=== PATIENT | female | born 1965 | race Caucasian/White ===

== ENCOUNTER 2016-10-25 17:44 | Emergency (ER) | payer OTHER ==
[2016-10-25 18:23] VITALS: BP 106/51
--- NOTE | 2016-10-25 18:52 | UC ---
Lower Extremity/Ankle HPI - HPI Summary HPI Summary: Patient presents with left ankle pain after twisting the ankle in a pothole yesterday. She has been ambulating with pain. Denies color or temperature changes. Denies numbness or tingling. Pain is felt over the lateral side of the foot and radiates over the ATFL. Denies pain at lower leg. Denies pain of the knee. Denies hitting her head or LOC. She has never injured the ankle before. - History of Current Complaint Chief Complaint: UCLowerExtremity Stated Complaint: LFT ANKLE INJURY Time Seen by Provider: 10/25/16 18:42 Hx Obtained From: Patient Hx Last Menstrual Period: hysterectomy ?: No Onset/Duration: Sudden Onset Severity Initially: Moderate Severity Currently: Moderate Pain Intensity: 5 Pain Scale Used: 0-10 Numeric Aggravating Factor(s): Standing, Ambulation Alleviating Factor(s): Rest, Elevation Able to Bear Weight: Yes - Risk Factors Gout Risk Factors: Age Over 40 DVT Risk Factors: Negative Septic Arthritis Risk Factor: Negative - Allergies/Home Medications Allergies/Adverse Reactions: Allergies Allergy/AdvReac Type Severity Reaction Status Date / Time Penicillins Allergy Intermediate Rash Verified 10/25/16 18:23 Ampicillin Allergy Rash Verified 10/25/16 18:23 Home Medications: Home Medications Aspirin Low Dose CHEW TAB* [Aspirin Low Dose TAB*] 81 mg PO DAILY 10/25/16 [ History Confirmed 10/25/16] Clopidogrel TAB* [Plavix TAB*] 75 mg PO DAILY 10/25/16 [History Confirmed ] Metoprolol Tartrate TAB* [Lopressor TAB*] 0.5 tab PO BID 10/25/16 [History Confirmed 10/25/16] Omeprazole CAP* [Prilosec CAP* 20 MG] 20 mg PO DAILY 10/25/16 [History Confirmed 10/25/16] Pravastatin (NF) [Pravachol (NF)] 1 tab PO DAILY 10/25/16 [History Confirmed 12/04] PMH/Surg Hx/FS Hx/Imm Hx Previously Healthy: Yes Other History Of: Negative For: HIV, Hepatitis B, Hepatitis C - Surgical History Surgical History: Yes Surgery Procedure, Year, and Place: 3 . L ovary removed R/T cyst. Gall bladder. Complete Hysterectomy - Family History Known Family History: Positive: Cardiac Disease, Hypertension - Social History Occupation: Unemployed Lives: With Family Alcohol Use: None Substance Use Type: None Smoking Status (MU): Light Every Day Tobacco Smoker Type: Cigarettes Amount Used/How Often: 1/4 ppd Length of Time of Smoking/Using Tobacco: 33 YRS Review of Systems Constitutional: Negative Respiratory: Negative Cardiovascular: Negative Gastrointestinal: Negative Motor: Decreased ROM Neurovascular: Negative Musculoskeletal: Arthralgia Neurological: Negative Psychological: Negative All Other Systems Reviewed And Are Negative: Yes Physical Exam Triage Information Reviewed: Yes Appearance: Well-Appearing, Well-Nourished Vital Signs: Initial Vital Signs Temp 99 F 10/25/16 18:17 Pulse 81 10/25/16 18:17 Resp 16 10/25/16 18:17 BP 106/51 10/25/16 18:17 Pulse Ox 100 10/25/16 18:17 Vital Signs Reviewed: Yes Eye Exam: Normal Eyes: Positive: Conjunctiva Clear Neck exam: Normal Neck: Positive: Supple, Nontender, No Lymphadenopathy Respiratory Exam: Normal Respiratory: Positive: Chest non-tender, Lungs clear, Normal breath sounds Cardiovascular Exam: Normal Cardiovascular: Positive: RRR Musculoskeletal: Positive: Strength Limited @ - Thorough physical exam was performed, focusing on ankle special tests. Pain on palpation over lateral aspect and superior aspect of ankle over ATFL and deltoid ligaments. No pain on palpation over medial side. Due to patient pain around injury, physical exam was limited. Unable to perform anterior drawer test or talar tilt test d/t pain. Earl test negative. Limited ROM. Dorsiflexion, great toe extension and plantar flexion intact however limited. No pain on palpation over medial or lateral lower extremity. No pain with knee flexion. Pulses intact bilaterally. No temperature change or pallor noted bilaterally. Ecchymosis and swelling noted on lateral aspect. No lesion or disruption of skin is seen. Unable to bear weight. Pulses intact +2 bilaterally. Neurological Exam: Normal Psychological Exam: Normal Psychological: Positive: Normal Response To Family Skin Exam: Normal Lower Extremity Course/Dx - Course Course Of Treatment: Based on Darke Ankle Rules, patient sent to imaging. Xray negative for fracture or other acute findings. Soft tissue swelling noted over the lateral aspect of the ankle. Medial and lateral distal lower extremity without pain and x-rays show no widening of the ankle joint regarding low suspicion for Maisonneuve fx. Ankle was hiro wrapped to patient comfort to allow for immobilization for this period of time. Crutches given. Patient given orthopedic follow up in 5-7 days. Encouraged Ibuprofen 600mg three times daily with meals for pain. Return precautions given. Educated patient regarding ankle injuries and healing time and the possibility of further evaluation and imaging as orthopedist sees fit. Patient agrees with plan. - Differential Dx/Diagnosis Differential Diagnosis/HQI/PQRI: Fracture (Closed), Fracture (Open), Sprain, Strain, Tendonitis Provider Diagnoses: Left Ankle Sprain Discharge - Discharge Plan Condition: Stable Disposition: HOME Patient Education Materials: Ankle Sprain (ED) Referrals: Patric Jennings MD [Primary Care Provider] - Additional Instructions: Crutches for ambulation given. Ibuprofen 600mg three times daily with meals for pain. Follow up with orthopedic physician in 5-7 days. If numbness, tingling, decreased sensation, increased pain, temperature changes or pallor noted in toes, come back to ER immediately. Protect the area. For your comfort level, do not bear weight, pull or push until you can injury is somewhat healed. This may involve the need for immobilization or crutches for a period of time. Rest the involved area, but not too long. You may need to be off your injury for some time to allow for healing, however excessive immobilization of joints can lead to stiffness and delay healing time. Early mobilization is encouraged if it is pain-free. Ice. Not directly on the skin. Cover with a towel. Apply ice no more than 30 minutes at a time Compression: You may use and keep an hiro wrap bandage over the injury to decrease swelling. Again, this should be limited and be taken off periodically to encourage early range of motion and mobilization. Elevate: Try to elevate the injured area above the heart whenever possible.
--- NOTE | 2016-10-25 19:09 | RAD ---
INDICATION: Left ankle injury. TECHNIQUE: 3 views of the left ankle were obtained. FINDINGS: There is diffuse soft tissue swelling. The bones are normal alignment. No fracture is seen. Joint spaces appear maintained. IMPRESSION: SOFT TISSUE SWELLING, NO FRACTURE IS SEEN.
== END 2016-10-25 19:43 | disposition home or self-care (01) ==
LOC: UCCORT 17:44
DX: S93.402A Sprain of unspecified ligament of left ankle, initial encounter (principal); X50.1XXA Overexertion from prolonged static or awkward postures, initial encounter; Y93.9 Activity, unspecified; Y92.89 Other specified places as the place of occurrence of the external cause; Z90.710 Acquired absence of both cervix and uterus; Z90.49 Acquired absence of other specified parts of digestive tract; Z88.0 Allergy status to penicillin; F17.210 Nicotine dependence, cigarettes, uncomplicated
CPT/HCPCS: 99213; G0463

== ENCOUNTER 2017-02-02 18:47 | Emergency (ER) | payer OTHER ==
[2017-02-02 19:08] VITALS: BP 97/51
[2017-02-02] MEDS ORDERED: Lidocaine 2% W/EPI 1:100,000* 20 ML MDV INJ ONE (20:24)
[2017-02-02] MEDS ORDERED: Sulfamethox/Trimethoprim DS 800/160* TAB PO ONE (20:40)
[2017-02-02] MEDS ORDERED: Ibuprofen TAB* 600 MG PO ONE (20:41)
--- NOTE | 2017-02-02 20:49 | UC ---
Complaint Female HPI - HPI Summary HPI Summary: 52 yo female with right labia swelling x days hurts to sit no fever no hx MRSA - History Of Current Complaint Chief Complaint: UCGU Stated Complaint: PERSONAL Time Seen by Provider: 02/02/17 19:51 Hx Obtained From: Patient Hx Last Menstrual Period: hysterectomy Onset/Duration: Gradual Onset, Lasting Days, Worse Since - today Timing: Constant Severity Initially: Mild Severity Currently: Moderate Pain Intensity: 7 Pain Scale Used: 0-10 Numeric Character: Sharp Aggravating Factor(s): Movement Alleviating Factor(s): Position - Allergies/Home Medications Allergies/Adverse Reactions: Allergies Allergy/AdvReac Type Severity Reaction Status Date / Time Penicillins Allergy Intermediate Rash Verified 02/02/17 19:01 Ampicillin Allergy Rash Verified 02/02/17 19:01 PMH/Surg Hx/FS Hx/Imm Hx Previously Healthy: Yes Other History Of: Negative For: HIV, Hepatitis B, Hepatitis C - Surgical History Surgical History: Yes Surgery Procedure, Year, and Place: 3 . L ovary removed R/T cyst. Gall bladder. Complete Hysterectomy - Family History Known Family History: Positive: Cardiac Disease, Hypertension - Social History Alcohol Use: None Substance Use Type: None Smoking Status (MU): Light Every Day Tobacco Smoker Type: Cigarettes Amount Used/How Often: 1/4 ppd Length of Time of Smoking/Using Tobacco: 33 YRS Review of Systems Constitutional: Negative Skin: Negative Eyes: Negative ENT: Negative Respiratory: Negative Cardiovascular: Negative Gastrointestinal: Negative Genitourinary: Negative Motor: Negative Neurovascular: Negative Musculoskeletal: Negative Neurological: Negative Psychological: Negative Is Patient Immunocompromised?: No All Other Systems Reviewed And Are Negative: Yes Physical Exam Triage Information Reviewed: Yes Appearance: Well-Appearing, No Pain Distress, Well-Nourished Vital Signs: Initial Vital Signs Temp 98.0 F 02/02/17 19:01 Pulse 92 02/02/17 19:01 Resp 16 02/02/17 19:01 BP 97/51 02/02/17 19:01 Pulse Ox 98 02/02/17 19:01 Vital Signs Reviewed: Yes Eyes: Positive: Conjunctiva Clear ENT: Positive: Hearing grossly normal. Negative: Nasal congestion, TMs normal, Trismus, Muffled/hoarse voice Dental: Positive: Other: - edentulous Neck: Positive: Supple, Nontender Respiratory: Positive: Lungs clear, Normal breath sounds, No respiratory distress, No accessory muscle use Cardiovascular: Positive: RRR, No Murmur Abdomen Description: Positive: Nontender, Other: - 1 cm right batholin cyst not fluctuant Neurological: Positive: Alert Psychological Exam: Normal Skin Exam: Normal Procedures - Procedure Summary Procedure Summary: I & D right Bartholin cyst abscess time out sterile prep anesth with 2 cc lido plus epi incised scant serous d/c culture obtained - Incision and Drainage Site: Right bartholin cyst Anesthesia: Local Instrument(s): Scalpel Packing: Other - not packed Complaint Female Dx - Differential Dx/Diagnosis Provider Diagnoses: right batholin cyst abscess Discharge - Discharge Plan Condition: Stable Disposition: HOME Prescriptions: Ibuprofen TAB* [Motrin TAB*] 600 mg PO Q6H PRN #40 tab PRN Reason: Pain Sulfamethox/Trimethoprim DS* [Bactrim DS 800/160 TAB*] 1 tab PO BID #14 tab Patient Education Materials: Bartholin Cyst (ED) Referrals: Candelaria Menendez MD [Primary Care Provider] - Evan Belcher MD [Medical Doctor] - As Soon As Possible Additional Instructions: sit in a warm soapy tub 4x day TO ER FOR WORSENING SYMPTOMS OR IF NOT MARKEDLY BETTER IN 2 DAYS a culture is pending
== END 2017-02-02 20:52 | disposition home or self-care (01) ==
LOC: UCCORT 18:47
DX: N75.1 Abscess of Bartholin's gland (principal); Z88.0 Allergy status to penicillin; F17.210 Nicotine dependence, cigarettes, uncomplicated
CPT/HCPCS: 10060; 56420; 87070; 87077; 87205; 99212; A9270-GY; G0463

== ENCOUNTER 2017-05-16 19:24 | Emergency (ER) | payer OTHER ==
[2017-05-16 19:33] VITALS: BP 121/56
--- NOTE | 2017-05-16 19:34 | UC ---
Complaint Female HPI - HPI Summary HPI Summary: 52 year old presents with complains of rash. - History Of Current Complaint Chief Complaint: UCSkin Stated Complaint: SKIN COMPLAINT Time Seen by Provider: 05/16/17 19:33 Hx Obtained From: Patient Hx Last Menstrual Period: hysterectomy Onset/Duration: Sudden Onset Timing: Constant Severity Initially: Moderate Severity Currently: Moderate - Allergies/Home Medications Allergies/Adverse Reactions: Allergies Allergy/AdvReac Type Severity Reaction Status Date / Time Penicillins Allergy Intermediate Rash Verified 05/16/17 19:33 Ampicillin Allergy Rash Verified 05/16/17 19:33 PMH/Surg Hx/FS Hx/Imm Hx Previously Healthy: Yes Other History Of: Negative For: HIV, Hepatitis B, Hepatitis C - Surgical History Surgical History: Yes Surgery Procedure, Year, and Place: 3 . L ovary removed R/T cyst. Gall bladder. Complete Hysterectomy - Family History Known Family History: Positive: Cardiac Disease, Hypertension - Social History Alcohol Use: None Substance Use Type: None Smoking Status (MU): Light Every Day Tobacco Smoker Type: Cigarettes Amount Used/How Often: 4 cigs per day Length of Time of Smoking/Using Tobacco: 33 YRS Review of Systems Constitutional: Negative Skin: Rash Eyes: Negative ENT: Negative Respiratory: Negative Cardiovascular: Negative Gastrointestinal: Negative Genitourinary: Negative Motor: Negative Neurovascular: Negative Musculoskeletal: Negative Neurological: Negative Psychological: Negative All Other Systems Reviewed And Are Negative: Yes Physical Exam Triage Information Reviewed: Yes Vital Signs: Initial Vital Signs Temp 36.4 C 05/16/17 19:29 Pulse 88 05/16/17 19:29 Resp 16 05/16/17 19:29 BP 121/56 05/16/17 19:29 Pulse Ox 100 05/16/17 19:29 Vital Signs Reviewed: Yes Eye Exam: Normal ENT Exam: Normal Dental Exam: Normal Neck exam: Normal Neck: Positive: 1 Respiratory Exam: Normal Cardiovascular Exam: Normal Abdominal Exam: Normal Musculoskeletal Exam: Normal Neurological Exam: Normal Psychological Exam: Normal Skin: Positive: rashes Complaint Female Dx - Differential Dx/Diagnosis Provider Diagnoses: scabies. rash Discharge - Discharge Plan Condition: Stable Disposition: HOME Prescriptions: Methylprednisolone [Medrol Dosepak 4 MG*] 4 mg PO .SEE JANEY INSTRUCTION #21 tab Permethrin [Elimite] 5 % EX . DIRECTED #2 tube Triamcinolone 0.1% CREAM(NF) [Kenalog Cream 0.1%(NF)] 1 applic TOPICAL TID PRN # 85 gm PRN Reason: Itching Patient Education Materials: Scabies (ED), Acute Rash (ED) Referrals: Candelaria Menendez MD [Primary Care Provider] -
== END 2017-05-16 19:41 | disposition home or self-care (01) ==
LOC: UCCORT 19:24
DX: B86 Scabies (principal); F17.210 Nicotine dependence, cigarettes, uncomplicated; Z88.0 Allergy status to penicillin
CPT/HCPCS: 99212; G0463

== ENCOUNTER 2017-10-08 19:11 | Emergency (ER) | payer OTHER ==
[2017-10-08 19:41] VITALS: BP 88/57
--- NOTE | 2017-10-16 10:37 | ED ---
Abdominal Pain/Female - HPI Summary HPI Summary: Pt with 1 year history of pelvic pain s/p hysterectomy. Pt is followed by several specialists for same and is waiting for referral to pain management. Pt states she has also had ongoing hematuria which is "they are trying to figure out" Pt states has been taking motrin and APAP with little relief. Pt states previoiusly had tramadol which helped but doesn't currently have any pt states her doctor told her to come to UC today pt denies fever, chills pain prevent sleep no n/v/d No vaginal discharge, itching No fever, chills rash +po medications reviewed medications reviewed istop - History of Current Complaint Chief Complaint: UCGU Stated Complaint: PELVIC PAIN Time Seen by Provider: 10/08/17 19:18 Hx Obtained From: Patient Hx Last Menstrual Period: hysterectomy Pain Intensity: 10 Pain Scale Used: 0-10 Numeric Allergies/Adverse Reactions: Allergies Allergy/AdvReac Type Severity Reaction Status Date / Time ampicillin Allergy Mild Rash Verified 10/08/17 19:42 Penicillins Allergy Rash Verified 10/08/17 19:42 Home Medications: Home Medications Albuterol 2.5MG/3ML (0.083%)* [Ventolin 2.5 MG/3 ML NEB.SHEILA*] 2.5 mg INH Q6H PRN 10/08/17 [History Confirmed 10/08/17] PMH/Surg Hx/FS Hx/Imm Hx Previously Healthy: Yes Endocrine/Hematology History: Denies: Hx Diabetes, Hx Thyroid Disease Cardiovascular History: Reports: Hx Hypertension Denies: Hx Congestive Heart Failure, Hx Deep Vein Thrombosis, Hx Myocardial Infarction, Hx Pacemaker/ICD Respiratory History: Reports: Hx Asthma, Hx Chronic Obstructive Pulmonary Disease (COPD) Denies: Hx Lung Cancer, Hx Pneumonia, Hx Pulmonary Embolism GI History: Denies: Hx Gall Bladder Disease, Hx Gastrointestinal Bleed, Hx Ulcer, Hx Urosepsis History: Denies: Hx Kidney Stones, Hx Renal Disease Neurological History: Denies: Hx Dementia, Hx Migraine, Hx Seizures, Hx Transient Ischemic Attacks (TIA) Psychiatric History: Denies: Hx Anxiety, Hx Depression, Hx Schizophrenia, Hx Bipolar Disorder - Surgical History Surgery Procedure, Year, and Place: 3 . L ovary removed R/T cyst. Gall bladder. Complete Hysterectomy Infectious Disease History: No Infectious Disease History: Denies: Hx Clostridium Difficile, Hx Hepatitis, Hx Human Immunodeficiency Virus (HIV), Hx of Known/Suspected MRSA, Hx Shingles, Hx Tuberculosis, Hx Known/ Suspected VRE, Hx Known/Suspected VRSA, History Other Infectious Disease, Traveled Outside the [place] in Last 30 Days - Family History Known Family History: Positive: Cardiac Disease, Hypertension - Social History Occupation: Disabled Lives: With Family Alcohol Use: None Substance Use Type: Reports: None Smoking Status (MU): Light Every Day Tobacco Smoker Type: Cigarettes Amount Used/How Often: 4 cigs per day Length of Time of Smoking/Using Tobacco: since age 18 Have You Smoked in the Last Year: Yes Review of Systems Constitutional: Negative Gastrointestinal: Other - pelvic pain Positive: hematuria Musculoskeletal: Negative Skin: Negative All Other Systems Reviewed And Are Negative: Yes Physical Exam Triage Information Reviewed: Yes Vital Signs On Initial Exam: Initial Vitals Temp Pulse Resp BP Pulse Ox 97.5 F 83 18 88/57 99 10/08/17 19:25 10/08/17 19:25 10/08/17 19:25 10/08/17 19:25 10/08/17 19:25 Vital Signs Reviewed: Yes Appearance: Positive: Well-Appearing, No Pain Distress, Well-Nourished Skin: Positive: Warm, Skin Color Reflects Adequate Perfusion, Dry Head/Face: Positive: Normal Head/Face Inspection Eyes: Positive: Normal, EOMI, FANNY, Conjunctiva Clear ENT: Positive: Normal ENT inspection, Hearing grossly normal, Pharynx normal Neck: Positive: Supple, Nontender, No Lymphadenopathy Respiratory/Lung Sounds: Positive: Clear to Auscultation, Breath Sounds Present , Decreased Breath Sounds Cardiovascular: Positive: Normal, RRR Abdomen Description: Positive: Nontender, No Organomegaly, Soft. Negative: CVA Tenderness (R), CVA Tenderness (L), Distended, Guarding Musculoskeletal: Positive: Normal Neurological: Positive: Normal, Sensory/Motor Intact, Alert, Oriented to Person Place, Time Psychiatric: Positive: Normal, Anxious AVPU Assessment: Alert - Salima Coma Scale Best Eye Response: 4 - Spontaneous Best Motor Response: 6 - Obeys Commands Best Verbal Response: 5 - Oriented Coma Scale Total: 15 Diagnostics - Vital Signs Vital Signs Temp Pulse Resp BP Pulse Ox 10/08/17 19:25 97.5 F 83 18 88/57 99 - Laboratory Lab Results: Lab Results 10/08/17 Range/Units 20:07 POC Urine Color Yellow POC Urine Clarity Clear POC Urine pH 6.5 (5-9) POC Ur Specif Triangle <= 1.005 L (1.010-1.030) POC Urine Protein Negative (Negative) POC Ur Glucose (UA) Negative (Negative) POC Urine Ketones Negative (Negative) POC Urine Blood 2+ A (Negative) POC Urine Nitrite Negative (Negative) POC Urine Bilirubin Negative (Negative) POC Urine Urobilinogen 0.2 (Negative) POC U Leukocyte Esteras Negative (Negative) Lab Statement: Any lab studies that have been ordered have been reviewed, and results considered in the medical decision making process. Abdominal Pain Fem Course/Dx - Course Course Of Treatment: Pt presents with ongoing pelvic pain and hematuria. pt has multiple specialists for same. urine checked - blood, no infection. istop checked. pt states pain is keeping her awake at night. will give 7 tabs of tramadol for bedtime. d/w pt will not be prescribed chronic pain meds at and needs to work with PCP for pain management if this is the established pain. tramadol prescriptions discussed. pt comfortable and in agreement with plan. states understanding - Diagnoses Provider Diagnoses: Hematuria, Chronic pelvic pain in female Discharge - Sign-Out/Discharge Documenting (check all that apply): Discharge/Admit/Transfer - Discharge Plan Condition: Stable Disposition: HOME Prescriptions: traMADol TAB* [Ultram*] 50 mg PO BEDTIME PRN #5 tab MDD 1 PRN Reason: Severe Pain Patient Education Materials: Chronic Pain (ED), Pelvic Pain in Women (ED) Referrals: Candelaria Menendez MD [Primary Care Provider] - Rizwan Rodriguez DO [Doctor of Osteopathy] - Additional Instructions: Okay to alternate ibuprofen (advil, motrin) 600mg and tylenol 1000mg every 3 hours for pain. Take with food. do NOT take for more than 4-5 days Okay to take Tramadol at nighttime to help with pain and sleeping okay to apply a heating pad or hot water to your abdomen for discomfort Keep your appointment as scheduled with your specialist you have been given the information for Dr. Rodriguez - pain managment specialist As discussed at today's visit, chronic pain medications are not routinely prescribed at the urgent care center - Billing Disposition and Condition Condition: STABLE Disposition: HOME
== END 2017-10-08 20:31 | disposition home or self-care (01) ==
LOC: UCCORT 19:11
DX: R10.2 Pelvic and perineal pain (principal); R31.9 Hematuria, unspecified; I10 Essential (primary) hypertension; J44.9 Chronic obstructive pulmonary disease, unspecified; Z90.710 Acquired absence of both cervix and uterus; Z90.721 Acquired absence of ovaries, unilateral; Z90.49 Acquired absence of other specified parts of digestive tract; Z88.0 Allergy status to penicillin; F17.210 Nicotine dependence, cigarettes, uncomplicated
CPT/HCPCS: 81003; 99212; G0463

== ENCOUNTER 2018-02-05 19:10 | Emergency (ER) | payer OTHER ==
[2018-02-05 19:47] VITALS: BP 100/51
--- NOTE | 2018-02-05 19:59 | UC ---
Lower Extremity/Ankle HPI - HPI Summary HPI Summary: An oxygen tank fell on patient's right ankle last night. States she had some swelling initially which seems to have resolved at this time. No pain with weightbearing. Feels much better today than it did last night. Patient decided to come in to get checked out just to be sure nothing needed to be done. - History of Current Complaint Chief Complaint: UCLowerExtremity Stated Complaint: RIGHT ANKLE SWELLING Time Seen by Provider: 02/05/18 19:48 Hx Obtained From: Patient Hx Last Menstrual Period: hysterectomy Onset/Duration: Sudden Onset, Lasting Days - 1 DAY, Still Present - BUT BETTER Severity Initially: Moderate Severity Currently: Mild Pain Intensity: 8 Pain Scale Used: 0-10 Numeric Aggravating Factor(s): Other - PALPATION Alleviating Factor(s): Rest Able to Bear Weight: Yes - Allergies/Home Medications Allergies/Adverse Reactions: Allergies Allergy/AdvReac Type Severity Reaction Status Date / Time ampicillin Allergy Mild Rash Verified 02/05/18 19:47 Penicillins Allergy Rash Verified 02/05/18 19:47 Home Medications: Home Medications Metoprolol Succinate XL TAB* [Toprol XL TAB*] 25 mg PO DAILY 02/05/18 [History Confirmed 02/05/18] Oxybutynin TAB* [Ditropan TAB*] 10 mg PO DAILY 02/05/18 [History Confirmed 02/05] Ramipril CAP* [Altace CAP*] 2.5 mg PO DAILY 02/05/18 [History Confirmed 02/05/18 ] PMH/Surg Hx/FS Hx/Imm Hx Cardiovascular History: Hypertension Respiratory History: COPD, Asthma Other History Of: Negative For: HIV, Hepatitis B, Hepatitis C - Surgical History Surgical History: Yes Surgery Procedure, Year, and Place: 3 . L ovary removed R/T cyst. Gall bladder. Complete Hysterectomy - Family History Known Family History: Positive: Cardiac Disease, Hypertension - Social History Alcohol Use: None Substance Use Type: None Smoking Status (MU): Light Every Day Tobacco Smoker Type: Cigarettes Amount Used/How Often: 4 cigs per day Length of Time of Smoking/Using Tobacco: since age 18 Have You Smoked in the Last Year: Yes Review of Systems Constitutional: Negative Skin: Negative Respiratory: Negative Cardiovascular: Negative Gastrointestinal: Negative Musculoskeletal: Arthralgia All Other Systems Reviewed And Are Negative: Yes Physical Exam Triage Information Reviewed: Yes Appearance: Well-Appearing, No Pain Distress, Well-Nourished Vital Signs: Initial Vital Signs Temp 98.2 F 02/05/18 19:43 Pulse 75 02/05/18 19:43 Resp 16 02/05/18 19:43 BP 100/51 02/05/18 19:43 Pulse Ox 100 02/05/18 19:43 Vital Signs Reviewed: Yes Eyes: Positive: Conjunctiva Clear ENT: Positive: Hearing grossly normal Neck: Positive: Supple Respiratory: Positive: No respiratory distress, No accessory muscle use Cardiovascular: Positive: Pulses Normal Abdomen Description: Positive: Soft Musculoskeletal: Positive: ROM Intact, Edema @ - BILATERAL 1+ NON PITTING ANKLE EDEMA, Other: - MILDLY TENDER SOFT TISSUE RIGHT MEDIAL ANKLE. FULL ROM. NO GAIT ABNORMALITY Neurological: Positive: Alert Psychological: Positive: Age Appropriate Behavior Skin: Negative: rashes Lower Extremity Course/Dx - Differential Dx/Diagnosis Provider Diagnoses: RIGHT ANKLE CONTUSION Discharge - Sign-Out/Discharge Documenting (check all that apply): Patient Departure All imaging exams completed and their final reports reviewed: No Studies - Discharge Plan Condition: Stable Disposition: HOME Patient Education Materials: Contusion in Adults (ED) Referrals: Jazzmine Menendez MD [Primary Care Provider] - If Needed Additional Instructions: NO INDICATION FOR XRAY TODAY. LIKELY SOFT TISSUE INJURY. REST, ICE , COMPRESS, ELEVATE. YOUR SYMPTOMS SHOULD IMPROVE SIGNIFICANTLY OVER THE NEXT 1-2 WEEKS. IF YOU DO NOT IMPROVE EXPECTED FOLLOW-UP WITH YOUR PCP. YOU MAY BENEFIT FROM IMAGING AT THAT TIME. - Billing Disposition and Condition Condition: STABLE Disposition: Home
== END 2018-02-05 20:14 | disposition home or self-care (01) ==
LOC: UCCORT 19:10
DX: S90.01XA Contusion of right ankle, initial encounter (principal); I10 Essential (primary) hypertension; J44.9 Chronic obstructive pulmonary disease, unspecified; J45.909 Unspecified asthma, uncomplicated; F17.210 Nicotine dependence, cigarettes, uncomplicated; Z88.0 Allergy status to penicillin; W20.8XXA Other cause of strike by thrown, projected or falling object, initial encounter; Y92.9 Unspecified place or not applicable
CPT/HCPCS: 99212; G0463

== ENCOUNTER 2019-04-15 08:02 | Emergency (ER) | payer OTHER ==
[2019-04-15 08:16] VITALS: BP 115/55
--- NOTE | 2019-04-15 09:00 | UC ---
Knee Pain HPI - HPI Summary HPI Summary: right knee pain x 7 days s/p fall on her right knee 7 days ago, pain is 7 out of 10, worse with walking, better, with rest and ibuprofen was seen by [facility] and had Xrays with normal reading - History of Current Complaint Chief Complaint: UCLowerExtremity Stated Complaint: RT KNEE PAIN Time Seen by Provider: 04/15/19 08:15 Hx Obtained From: Patient Hx Last Menstrual Period: hysterectomy Onset/Duration: Sudden Onset, Lasting Days - 7, Still Present Severity Initially: Severe Severity Currently: Severe Pain Intensity: 10 Pain Scale Used: 0-10 Numeric Character: Aching Aggravating Factor(s): Movement, Weight Bearing, Prolonged Standing, Stairs Alleviating Factor(s): Rest, Cold Associated Signs And Symptoms: Negative: Swelling, Redness, Bruising, Fever, Weakness, Numbness, Tingling Able to Bear Weight: Yes - Allergies/Home Medications Allergies/Adverse Reactions: Allergies Allergy/AdvReac Type Severity Reaction Status Date / Time ampicillin Allergy Mild Rash Verified 04/15/19 08:13 Penicillins Allergy Rash Verified 04/15/19 08:13 Home Medications: Home Medications Ibuprofen TAB* [Motrin TAB* 600 MG] 600 mg PO Q6H PRN 04/15/19 [History Confirmed 04/15/19] PMH/Surg Hx/FS Hx/Imm Hx Cardiovascular History: Hypertension Respiratory History: COPD, Asthma Other History Of: Negative For: HIV, Hepatitis B, Hepatitis C - Surgical History Surgical History: Yes Surgery Procedure, Year, and Place: 3 . L ovary removed R/T cyst. Gall bladder. Complete Hysterectomy - Family History Known Family History: Positive: Cardiac Disease, Hypertension - Social History Alcohol Use: None Substance Use Type: None Smoking Status (MU): Light Every Day Tobacco Smoker Type: Cigarettes Amount Used/How Often: ~1/5 PPD Length of Time of Smoking/Using Tobacco: Since Age 18 Have You Smoked in the Last Year: Yes Review of Systems All Other Systems Reviewed And Are Negative: Yes Constitutional: Positive: Negative Skin: Positive: Negative Eyes: Positive: Negative ENT: Positive: Negative Respiratory: Positive: Negative Is Patient Immunocompromised?: No Physical Exam Triage Information Reviewed: Yes Appearance: Well-Appearing, No Pain Distress, Well-Nourished Vital Signs: Initial Vital Signs Temp 98.5 F 04/15/19 08:11 Pulse 93 04/15/19 08:11 Resp 20 04/15/19 08:11 BP 115/55 04/15/19 08:11 Pulse Ox 100 04/15/19 08:11 Vital Signs Reviewed: Yes Eye Exam: Normal Eyes: Positive: Conjunctiva Clear ENT: Positive: Normal ENT inspection, Hearing grossly normal, Pharynx normal Neck: Positive: Supple, Nontender, No Lymphadenopathy Respiratory: Positive: Chest non-tender, Lungs clear, Normal breath sounds Cardiovascular: Positive: RRR, No Murmur, Pulses Normal Musculoskeletal: Positive: Other: - right knee : no swelling, no ecchymosis, + diffuse tenderness, good ROM , stable ligaments Knee Pain Course/Dx - Differential Dx/Diagnosis Provider Diagnosis: Contusion of right knee Discharge ED - Sign-Out/Discharge Documenting (check all that apply): Patient Departure All imaging exams completed and their final reports reviewed: No Studies - Discharge Plan Condition: Stable Disposition: HOME Patient Education Materials: Knee Pain (ED) Referrals: Jazzmine Menendez MD [Primary Care Provider] - 7 Days Additional Instructions: contusion of the right knee, may need more time for improvement cont. with rest, ice, elevation , take Ibuprofen as needed for pain may use EDWARD Wrap - Billing Disposition and Condition Condition: STABLE Disposition: Home
== END 2019-04-15 08:32 | disposition home or self-care (01) ==
LOC: UCCORT 08:02
DX: S80.01XA Contusion of right knee, initial encounter (principal); I10 Essential (primary) hypertension; J44.9 Chronic obstructive pulmonary disease, unspecified; F17.210 Nicotine dependence, cigarettes, uncomplicated; Z88.0 Allergy status to penicillin; W18.30XA Fall on same level, unspecified, initial encounter; Y92.9 Unspecified place or not applicable
CPT/HCPCS: 99211; G0463